=== PATIENT | female | born 1955 | race Caucasian/White ===

== ENCOUNTER 2017-10-12 09:16 | Outpatient (CLI) ==
--- NOTE | 2017-10-13 10:03 | MAMMO ---
EXAM: Digital screening mammogram with 3-D tomosynthesis and CAD HISTORY: Screening mammogram. COMPARISON: None FINDINGS: Breast density demonstrates scattered fibroglandular densities. There is no suspicious rush cification or nodule. 3-D tomosynthesis is normal. IMPRESSION: No suspicious calcification or nodule. Recommendation: Annual screening mammogram. BIRADS 1: Negative
== END 2017-10-12 09:17 | disposition home or self-care (01) ==
LOC: RAD 09:16
PROVIDERS: ATTEND Internal Medicine
DX: Z12.31 Encounter for screening mammogram for malignant neoplasm of breast (principal)
CPT/HCPCS: 77067